=== PATIENT | male | born 1950 | race Caucasian/White ===

== ENCOUNTER 2017-09-02 00:58 | Emergency (ER) | payer OTHER ==
[~2017-09-02] VITALS: Ht 182.9 cm; Wt 86.2 kg
[~2017-09-02 00:58] MED LIST: ALLO100 PO; Aspir 8181 MG PO; BUDE10.22 INH; CEPH500 PO; Coumadin5 MG PO; ENTRESTO 24 MG1 EACH PO; GLIP5 PO; HYDCHL12.5 PO; LEVO750 PO; METO25ER PO; NICO14TP TOP; Prednisone50 MG PO; RANI150 PO; TAMS.4ER PO
[2017-09-02] MEDS ORDERED: CARV3.125 PO (01:10)
[2017-09-02] MEDS ORDERED: ATOR20 PO (01:10)
[2017-09-02] MEDS ORDERED: NICO21TP (01:11)
[2017-09-02] MEDS ORDERED: RANI150 PO (01:11)
[2017-09-02] MEDS ORDERED: ENTRESTO 24 MG1 EACH PO (01:12)
[2017-09-02] MEDS ORDERED: SPIR25 PO (01:12)
[2017-09-02] MEDS ORDERED: TAMS.4ER PO (01:13)
[2017-09-02] MEDS ORDERED: ALLO100 PO (01:13)
[2017-09-02 02:57] LABS: Source, Urine Clean Catch
[2017-09-02 02:59] LABS: BASOPHILS ABSOLUTE AUTO 0.03 K/mm3 (0.00-0.23); BASOPHILS PERCENT AUTO 0 % (0-2); Bilirubin, Urine Neg (Neg); Blood, Urine 3+ (Neg); EOSINOPHILS ABSOLUTE AUTO 0.01 K/mm3 (0.00-0.68); EOSINOPHILS PERCENT AUTO 0 % (0-6); Glucose Qualitative, Urine 3+ (Neg); Hematocrit 37.2 % (37.0-53.0); Hemoglobin 12.4 g/dL (13.5-17.5); IMMATURE GRAN ABSOLUTE AUTO 0.22 K/mm3 (0.00-0.10); IMMATURE GRAN PERCENT AUTO 1 % (0-1); Ketones, Urine Neg (Neg); LYMPHOCYTES ABSOLUTE AUTO 0.91 K/mm3 (0.84-5.20); LYMPHOCYTES PERCENT AUTO 4 % (21-46); Leukocyte Esterase, Urine 1+ (Neg); MONOCYTES ABSOLUTE AUTO 2.42 K/mm3 (0.16-1.47); MONOCYTES PERCENT AUTO 10 % (4-13); Mean Corpuscular HGB 31.5 pg (26.0-34.0); Mean Corpuscular HGB Conc 33.3 g/dL (31.5-36.5); Mean Corpuscular Volume 94 fL (80-100); Mean Platelet Volume 9.8 fL (9.1-12.4); NEUTROPHILS ABSOLUTE AUTO 19.76 K/mm3 (1.96-9.15); NEUTROPHILS PERCENT AUTO 85 % (41-73); Nitrite, Urine Neg (Neg); Platelet Count 247 K/mm3 (150-400); Protein, Urine 3+ (Neg); RDW Coefficient Variation 13.9 % (11.7-14.2); RDW Standard Deviation 48.6 fL (35.1-46.3); Red Blood Cell Count 3.94 M/mm3 (4.30-5.90); Urobilinogen, Urine NORM (Normal); White Blood Cell Count 23.35 K/mm3 (4.00-11.30)
[2017-09-02 03:04] LABS: Appearance, Urine Clear (Clear); Color, Urine Yellow (P-Yellow)
[2017-09-02 03:05] LABS: Amorphous Mod (0-Heavy); Bacteria Mod /hpf; Red Blood Cells, Urine 0-2 /hpf (0-2); Squamous Epithelial Cells Not Seen /hpf (Few)
[2017-09-02 03:17] LABS: Albumin, Blood 2.8 g/dL (3.4-5.0); Albumin/Globulin Ratio 0.7 (0.8-1.8); Bilirubin, Total 0.4 mg/dL (0.1-1.0); Bun/Creatinine Ratio 7.9 (12.0-20.0); Calcium, Blood 8.2 mg/dL (8.5-10.1); Creatinine, Blood 1.9 mg/dL (0.60-1.20); Globulin, Blood 3.9 g/dL (2.2-4.0); Potassium, Blood 4.2 mmol/L (3.5-5.5); Total Protein, Blood 6.7 g/dL (6.4-8.2)
[2017-09-02 04:03] LABS: International Normalized Ratio 1.05; Prothrombin Time Results 10.9 Sec (9.7-11.5)
== END 2017-09-02 05:05 | disposition short-term general hospital (02) ==
LOC: ER 00:58
PROVIDERS: Emergency Medicine
DX: I71.3 Abdominal aortic aneurysm, ruptured (principal); R58 Hemorrhage, not elsewhere classified; E87.2 Acidosis; I25.10 Atherosclerotic heart disease of native coronary artery without angina pectoris; K21.9 Gastro-esophageal reflux disease without esophagitis; J44.9 Chronic obstructive pulmonary disease, unspecified; E11.22 Type 2 diabetes mellitus with diabetic chronic kidney disease; N18.3 Chronic kidney disease, stage 3 (moderate); Z88.8 Allergy status to other drugs, medicaments and biological substances; Z79.899 Other long term (current) drug therapy; Z79.84 Long term (current) use of oral hypoglycemic drugs; Z79.82 Long term (current) use of aspirin
CPT/HCPCS: 36415; 51702; 71045; 74176; 80053; 81001; 83605; 83880; 85025; 85610; 85730; 86850; 86900; 86901; 86920; 87086; 96365; 96375; 99285; J3370; J7030; J7050; P9016